=== PATIENT | male | born 1955 | race Caucasian/White ===

== ENCOUNTER 2018-04-02 22:14 | Emergency (ER) | payer OTHER ==
[2018-04-02] MEDS: HYDROcodone/APAP 5/325MG 1 TAB TABLET PO (22:58)
[2018-04-02] MEDS: ONDANSETRON ODT 4 MG TAB.RAPDIS. PO (22:58)
[2018-04-03] MEDS: MORPHINE SULFATE 10 MG/ML VIAL. IM (00:02)
== END 2018-04-03 00:53 | disposition home or self-care (01) ==
LOC: ER 22:14
DX: S02.2XXA Fracture of nasal bones, initial encounter for closed fracture (principal); S09.90XA Unspecified injury of head, initial encounter; R68.84 Jaw pain; Z88.0 Allergy status to penicillin; Y04.0XXA Assault by unarmed brawl or fight, initial encounter; Y93.89 Activity, other specified; Y92.89 Other specified places as the place of occurrence of the external cause; Y99.8 Other external cause status
CPT/HCPCS: 70450; 70486; 72125; 96372; 99284; J2270; Q0162